=== PATIENT | female | born 1990 | race Caucasian/White ===

== ENCOUNTER 2018-03-24 19:28 | Emergency (ER) | payer SELFPAY ==
[2018-03-24 19:56] VITALS: BP 112/59
[2018-03-24] MEDS ORDERED: Ondansetron ODT TAB* 4 MG PO ONE ×2 (19:58→20:30)
[2018-03-24] MEDS ORDERED: Ondansetron TAB* 4 MG PO ONE (20:22)
[2018-03-24] MEDS ORDERED: diPHENhydraMINE PO* 50 MG PO ONE (20:22)
--- NOTE | 2018-03-24 20:28 | UC ---
Abdominal Pain Female HPI - HPI Summary HPI Summary: Nausea, vomiting, and frequent loose stool starting 3 nights ago. Did get [place] with only one loose stool, but since then symptoms have increased. Denies fever or focal pain. Has hx of IBS and cyclic vomiting, this has happened in the past and lasted up to 1 week. Has had both appendix and gallbladder removed in the past. - History of Current Complaint Chief Complaint: UCGeneralIllness Stated Complaint: VOMITING Time Seen by Provider: 03/24/18 20:14 Hx Obtained From: Patient Hx Last Menstrual Period: 1 week ?: No Onset/Duration: Gradual Onset, Lasting Days Timing: Constant Severity Initially: Mild Severity Currently: Moderate Pain Intensity: 6 Location: Diffuse Radiates: No Character: Cramping Aggravating Factor(s): Food, Movement, Deep Breaths Alleviating Factor(s): Medications, NPO Associated Signs and Symptoms: Positive: Nausea, Vomiting, Diarrhea. Negative: Fever, Blood in Stool, Urinary Symptoms, Vaginal Bleeding Allergies/Adverse Reactions: Allergies Allergy/AdvReac Type Severity Reaction Status Date / Time prochlorperazine Allergy Severe HALLUCINATIONS, Verified 03/24/18 19:59 [From Compazine] TWITCHING promethazine [From Phenergan] Allergy Severe HALLUCINATIONS, Verified 03/24/18 19:59 TWITCHING PMH/Surg Hx/FS Hx/Imm Hx Other GI/ History: "IBS and cyclic vomiting" - Surgical History Surgical History: None Surgery Procedure, Year, and Place: L4l5 PARTIAL DISCTECTOMY. CHOLYCYSTECTOMY. APPY - Family History Known Family History: Negative: Blood Disorder - Social History Alcohol Use: None Substance Use Type: None Smoking Status (MU): Never Smoked Tobacco Review of Systems Constitutional: Negative Skin: Negative Eyes: Negative ENT: Negative Respiratory: Negative Cardiovascular: Negative Gastrointestinal: Vomiting, Diarrhea, Nausea Genitourinary: Negative Motor: Negative Neurovascular: Negative Musculoskeletal: Negative Neurological: Negative Psychological: Negative Is Patient Immunocompromised?: No All Other Systems Reviewed And Are Negative: Yes Physical Exam Triage Information Reviewed: Yes Appearance: No Pain Distress, Well-Nourished, Ill-Appearing - pale, nausea with sitting up Vital Signs: Initial Vital Signs Temp 98.0 F 03/24/18 19:48 Pulse 95 03/24/18 19:48 Resp 16 07/01/18 19:48 BP 112/59 03/24/18 19:48 Pulse Ox 100 03/24/18 19:48 Vital Signs Reviewed: Yes Eye Exam: Normal Eyes: Positive: Conjunctiva Clear ENT Exam: Normal ENT: Positive: Normal ENT inspection, Hearing grossly normal, Pharynx normal, TMs normal Neck exam: Normal Neck: Positive: Supple, Nontender, No Lymphadenopathy Respiratory Exam: Normal Respiratory: Positive: Chest non-tender, Lungs clear, Normal breath sounds, No respiratory distress, No accessory muscle use Cardiovascular Exam: Normal Cardiovascular: Positive: RRR, No Murmur Abdomen Description: Positive: Nontender, Soft. Negative: CVA Tenderness (R), CVA Tenderness (L), Distended, Guarding, McBurney's Point Tenderness, Peritoneal Signs Musculoskeletal Exam: Normal Neurological Exam: Normal Neurological: Positive: Alert Psychological Exam: Normal Psychological: Positive: Normal Response To Family Skin Exam: Normal Abd Pain Female Course/Dx - Differential Dx/Diagnosis Provider Diagnoses: Acute nausea and vomiting. acute diarrhea Discharge - Sign-Out/Discharge Documenting (check all that apply): Discharge/Admit/Transfer - Discharge Plan Condition: Stable Disposition: HOME Prescriptions: Ondansetron TAB* [Zofran 4 MG Tab*] 4 - 8 mg PO Q6H PRN #40 tab PRN Reason: Nausea Patient Education Materials: Acute Nausea and Vomiting (ED) Referrals: No Primary Care Phys,NOPCP [Primary Care Provider] - Additional Instructions: Please go to the emergency department right away if you develop blood in your vomit, bloody diarrhea, increasing pain, fever, or fainting. - Billing Disposition and Condition Condition: STABLE Disposition: Home
== END 2018-03-24 20:43 | disposition home or self-care (01) ==
LOC: UCEAST 19:28
DX: R11.2 Nausea with vomiting, unspecified (principal); R19.7 Diarrhea, unspecified; Z88.8 Allergy status to other drugs, medicaments and biological substances
CPT/HCPCS: 99203; A9270-GY; G0463